=== PATIENT | female | born 1960 | race Caucasian/White ===

== ENCOUNTER 2017-05-24 11:35 | Emergency (ER) | payer SELFPAY ==
[~2017-05-24] VITALS: Ht 160 cm; Wt 59.0 kg
[~2017-05-24 11:35] MED LIST: ACET325T11 PO; IBUP800T23 PO; NAPR-576 PO; ROBA750T3 PO
[2017-05-24 11:37] VITALS: BP 144/88; PULSE 81; RESP 16; TEMP 98.2; O2SAT 98
--- NOTE | 2017-05-24 11:46 | PD ---
Physical Exam Date Seen by Provider: May 24, 2017 Time Seen by Provider: 11:44 Narrative 57-year-old female presents with low back and left hip pain for the past week. Patient states she slipped and fell approximately week ago while taking her trash out. States history of degenerative disc disease. Pain is currently 8 out of 10. It is worse with movement. She has no known drug allergies. Data Data Last Documented VS Vital Signs Date Time Temp Pulse Resp B/P (MAP) Pulse Ox O2 Delivery O2 Flow Rate FiO2 05/24/17 11:37 98.2 81 16 144/88 (106) 98 MDM Medical Record Reviewed: Yes Supervised Visit with LALO: Yes Narrative Course Vital signs are stable. Patient awaiting bed placement. Condition: Stable Brain Hollins May 24, 2017 11:46
--- NOTE | 2017-05-24 12:54 | PD ---
HPI Chief Complaint: Fall Time Seen by Provider: 12:54 Travel History International Travel<30 days: No Contact w/Intl Traveler<30days: No Traveled to known affect area: No History of Present Illness HPI 57-year-old female presents to the emergency Department with complaint of continued right hip pain and low back pain after a fall 6 days ago. She states that she had a sharp shooting pain in her right lower back which caused her to fall. She states she has had this in the past and thinks it is due to her fibromyalgia. When she fell she injured her right hip and lower back. She has been ambulatory with a limp to the right lower extremity since the fall. She denies hitting her head or loss of consciousness. Denies neck pain. Denies encopresis, incontinence, saddle anesthesia. Denies IV drug use or cancer. Denies fever, vomiting, abdominal pain, chest pain, shortness of breath. Denies change in urine or stool. Denies anticoagulant therapy. Describes the pain as sharp shooting pain. Rates the pain 02/07. Has been taking Tylenol for symptom management. Pain is aggravated with abduction of the right hip and ambulation. Has no other medical complaints. No known allergies. No other modifying factors or associated signs and symptoms. PFSH Past Medical History Arthritis: Yes Cardiovascular Problems: Yes Fibromyalgia: Yes ("polymyalgia") Musculoskeletal: Yes (L5 chronic back pain) Tetanus Vaccination: Unknown Influenza Vaccination: No ?: Not Menopausal: Yes Social History Alcohol Use: No Tobacco Use: Yes (1PPD) Substance Use: Yes Allergies-Medications (Allergen,Severity, Reaction): Coded Allergies: No Known Allergies (Verified , 05/24/17) Reported Meds & Prescriptions Reported Meds & Active Scripts Active Walker/Adult/Folding (Device) 1 Mis Mis Ea .ROUTE DIRECTED Ibuprofen 800 Mg Tab 800 Mg PO Q8H PRN Robaxin (Methocarbamol) 500 Mg Tab 500 Mg PO QID PRN Review of Systems Except as stated in HPI: all other systems reviewed are Neg Physical Exam Narrative GENERAL: Well-nourished, well-developed female patient, in no acute distress; afebrile, nontoxic-appearing SKIN: Warm and dry. HEAD: Atraumatic. Normocephalic. EYES: Pupils equal and round. No scleral icterus. No injection or drainage. ENT: Mucosa pink and moist. Airway patent. NECK: Trachea midline. CARDIOVASCULAR: Regular rate. RESPIRATORY: No accessory muscle use. GASTROINTESTINAL: Flat. MUSCULOSKELETAL: Right hip with tenderness on abduction of the right lower extremity; no leg length discrepancy. Bilateral lower extremities supple and non-tense with 2+ pedal pulses and sensory intact; with full range of motion and 5/5 strength. 2+ DTRs bilaterally. Active dorsiflexion and extension of bilateral feet. Right straight leg raise is positive for low back pain. Ambulatory in room with a limp to the right lower extremity. sitting up in bed at 90. No obvious deformities. No clubbing. No cyanosis. No edema. BACK: Midline point tenderness on palpation of the lumbar spine. Tenderness on palpation of right lumbar iliosacral area. No obvious deformities. NEUROLOGICAL: Awake and alert. Oriented 3. No obvious cranial nerve deficits. Motor grossly within normal limits. Normal speech. Moves all extremities. 5/5 strength to all extremities. Sensory intact. PSYCHIATRIC: Appropriate mood and affect; insight and judgment normal. Data Data Last Documented VS Vital Signs Date Time Temp Pulse Resp B/P (MAP) Pulse Ox O2 Delivery O2 Flow Rate FiO2 05/24/17 11:37 98.2 81 16 144/88 (106) [address] Lumb Spine W/O Contrast (05/24/17 ) Hip, Uni(Ap&Lat) W Ap Pelvis (05/24/17 12:51) Ketorolac Inj (Toradol Inj) (05/24/17 13:00) Orphenadrine Inj (Norflex Inj) (05/24/17 13:00) Ed Discharge Order (05/24/17 14:22) [facility] Medical Decision Making Medical Screen Exam Complete: Yes Emergency Medical Condition: Yes Medical Record Reviewed: Yes Differential Diagnosis Fall, lumbar fracture, lumbar contusion, low-back strain, hip strain, hip contusion, sciatica Narrative Course 57-year-old female with right hip injury and low back injury after mechanical fall 6 days ago. Denies hitting her head or loss of consciousness. Denies neck pain. Norflex and Toradol administered in the ER. Right hip with pelvic x -ray ordered. CT lumbar spine ordered. 1416: Right hip and pelvis x-ray concludes no fracture. CT lumbar spine concludes: Last 24 [address] Impressions [address]ine [address] 05/24/17 0000 Signed Impressions: Service Date/Time: Wednesday, May 24, 2017 13:25 - CONCLUSION: 1. Degenerative disc disease most prominent at the lumbosacral junction with loss of disc height and vacuum disc phenomenon. 2. Minimal anterolisthesis of L5 on S1 probably due to facet arthrosis and degeneration. 3. No fracture. Spinal canal and neural foramina appear to be adequate throughout. 4. Possible adrenal hyperplasia. Jerry Ennis MD X-ray and CT findings discussed with the patient. Patient provided a copy of the CT scan report. Ibuprofen and Robaxin prescribed for home. Instructed patient to follow up with orthopedics. Instructed patient to follow up with primary care provider. Patient verbalizes understanding and agreement with treatment plan. Patient is medically cleared and stable for discharge. Discussed reasons to return to the emergency department. Patient agrees with treatment plan. The patients vital signs are stable and the patient is stable for outpatient follow-up and treatment. Patient discharged home, stable and in no acute distress. Diagnosis Primary Impression: Fall Qualified Codes: W19.XXXA - Unspecified fall, initial encounter Additional Impressions: Injury of low back Qualified Codes: S39.92XA - Unspecified injury of lower back, initial encounter Injury of right hip Qualified Codes: S79.911A - Unspecified injury of right hip, initial encounter Referrals: [facility] Orthopedist Primary Care Physician Patient Instructions: Acute Low Back Pain (ED), Fall Prevention (ED), General Instructions, Hip Pain (ED), Low Back Strain (ED), Sciatica (ED) Departure Forms: Tests/Procedures, Work Release Enter return to work date: May 31, 2017 Additional Instructions: Tylenol or ibuprofen as directed and as needed for pain Robaxin as prescribed and as needed for muscle spasms Heating pad and/or ice to affected area to reduce pain Avoid aggravating activities; increase activity as tolerated Walker for support Follow-up with primary care provider Return to emergency department immediately with worsening of symptoms Med/Other Pt SpecificInfo: Prescription(s) given Scripts Walker/Adult/Folding (Walker/Adult/Folding) 1 Mis Mis EA .ROUTE DIRECTED, #1 0 Refills Prov: Kerrie Dennis [employer] 05/24/17 Ibuprofen (Ibuprofen) 800 Mg Tab 800 MG PO Q8H Y for PAIN SCALE 1 TO 10, #20 TAB 0 Refills Prov: Kerrie Dennis 05/24/17 Methocarbamol (Robaxin) 500 Mg Tab 500 MG PO QID Y for MUSCLE SPASM, #30 TAB 0 Refills Prov: Kerrie Dennis 05/24/17 Disposition: 01 DISCHARGE HOME Condition: Stable Kerrie Dennis May 24, 2017 12:54
[2017-05-24] MEDS ORDERED: ORPHENADRINE INJ 60 MG/2 ML AMP IM ONE (13:00)
[2017-05-24] MEDS ORDERED: KETOROLAC TROMETHAMINE 60 MG/2 ML (IM) VIAL IM ONE (13:00)
--- NOTE | 2017-05-24 14:01 | RADRPT ---
EXAM DATE/TIME: 05/24/2017 13:25 [facility] COMPARISON: No previous studies available for comparison. INDICATIONS : Fall one week ago. Lower back pain. RADIATION DOSE: 35.86 CTDIvol (mGy) MEDICAL HISTORY : None SURGICAL HISTORY : None. ENCOUNTER: Initial ACUITY: 1 week PAIN SCALE: 6/10 LOCATION: Bilateral back TECHNIQUE: Volumetric scanning of the lumbar spine was performed. Multiplanar reconstructions in the sagittal, coronal and oblique axial planes were performed. Using automated exposure control and adjustment of the mA and/or kV according to patient size, radiation dose was kept as low as reasonably achievable t o obtain optimal diagnostic quality images. DICOM format image data is available electronically for review and comparison. FINDINGS: VERTEBRAE: Normal vertebral body height. ALIGNMENT: No evidence of subluxation. MISCELLANEOUS: Degenerative disc disease at the lumbosacral junction with loss of disc height and vacuum disc phenom enon. Minimal anterolisthesis of L5 on S1 due to facet hypertrophy and arthrosis. Vacuum joint phenom enon in the SI joints bilaterally. Adrenal glands are prominent but remain adreniform suggesting hype rplasia. T12-L1: The thecal sac has a normal diameter. No evidence of disc bulge or protrusion. The neural foramina are patent bilaterally. L1-L2: The thecal sac has a normal diameter. No evidence of disc bulge or protrusion. The neural foramina are patent bilaterally. L2-L3: The thecal sac has a normal diameter. No evidence of disc bulge or protrusion. The neural foramina are patent bilaterally. L3-L4: The thecal sac has a normal diameter. No evidence of disc bulge or protrusion. The neural foramina are patent bilaterally. L4-L5: The thecal sac has a normal diameter. No evidence of disc bulge or protrusion. The neural foramina are patent bilaterally. L5-S1: The thecal sac has a normal diameter. No evidence of disc bulge or protrusion. The neural foramina are patent bilaterally. CONCLUSION: 1. Degenerative disc disease most prominent at the lumbosacral junction with loss of disc height and vacuum disc phenomenon. 2. Minimal anterolisthesis of L5 on S1 probably due to facet arthrosis and degeneration. 3. No fracture. Spinal canal and neural foramina appear to be adequate throughout. 4. Possible adrenal hyperplasia. Jerry Ennis MD on May 24, 2017 at 13:53 Board Certified Radiologist. This report was verified electronically.
--- NOTE | 2017-05-24 14:13 | RADRPT ---
EXAM DATE/TIME: 05/24/2017 14:05 [facility] COMPARISON: No previous studies available for comparison. INDICATIONS : Fell at work. MEDICAL HISTORY : None. SURGICAL HISTORY : None. ENCOUNTER: Initial ACUITY: 1 day PAIN SCORE: 8/10 LOCATION: Right hip and pelvis FINDINGS: Examination of the right hip was performed with AP Pelvis. The primary and secondary trabecular issac maryjane of the femoral neck is intact. The hip joint is of normal width without significant sclerosis or bony hypertrophy. The acetabulum is grossly intact. CONCLUSION: No fracture Jerry Ennis MD on May 24, 2017 at 14:11 Board Certified Radiologist. This report was verified electronically.
[2017-05-24] MEDS ORDERED: IBUP800T23 PO (14:21)
[2017-05-24] MEDS ORDERED: WALKER/ADULT/FO1 MIS (14:21)
[2017-05-24] MEDS ORDERED: ROBA500T PO (14:21)
== END 2017-05-24 14:33 | disposition home or self-care (01) ==
LOC: NEPK 11:35
DX: S39.92XA Unspecified injury of lower back, initial encounter (principal); S79.911A Unspecified injury of right hip, initial encounter; M79.7 Fibromyalgia; F17.200 Nicotine dependence, unspecified, uncomplicated; W18.30XA Fall on same level, unspecified, initial encounter
CPT/HCPCS: 72131; 73502; 96372; 99285; J1885; J2360

== ENCOUNTER 2017-06-01 13:37 | Emergency (ER) | payer OTHER ==
[~2017-06-01] VITALS: Ht 162.6 cm; Wt 56.5 kg
[~2017-06-01 13:37] MED LIST changes: -ACET325T11 PO; +IBUP1TAB7 PO; -IBUP800T23 PO; -NAPR-576 PO; +ROBA500T PO; -ROBA750T3 PO; +WALKER/ADULT/FO1 MIS
[2017-06-01 13:38] VITALS: BP 124/64; PULSE 99; RESP 20; TEMP 99.2; O2SAT 96
[2017-06-01] MEDS ORDERED: GABA100C4 PO (14:56)
--- NOTE | 2017-06-01 14:56 | PD ---
HPI Chief Complaint: Musculoskeletal Complaint Time Seen by Provider: 14:53 Travel History International Travel<30 days: No Contact w/Intl Traveler<30days: No Traveled to known affect area: No History of Present Illness HPI 57-year-old female presents for evaluation after fall. She was seen here recently after a fall complaining of right hip and leg pain. She had CT imaging of the lumbar spine and x-ray imaging the hip revealing no acute abnormalities. She was prescribed Robaxin and ibuprofen. She reports that her symptoms improved with the administration medication but she reports a continued spasming pain in her right leg that is worse when sleeping. She reports a history of fibromyalgia and feels that this is being exacerbated by her fibromyalgia. She denies any new injury. She denies any bowel or bladder incontinence, weakness, saddle anesthesia, abdominal pain. She has no other complaints. PFSH Past Medical History Arthritis: Yes Cardiovascular Problems: Yes Fibromyalgia: Yes ("polymyalgia") Musculoskeletal: Yes (L5 chronic back pain) Menopausal: Yes Social History Alcohol Use: No Tobacco Use: Yes (1PPD) Substance Use: Yes Allergies-Medications (Allergen,Severity, Reaction): Coded Allergies: No Known Allergies (Verified Adverse Reaction, Unknown, 06/01/17) Reported Meds & Prescriptions Reported Meds & Active Scripts Active Gabapentin 100 Mg Cap 100 Mg PO TID 10 Days Ibuprofen 800 Mg Tab 800 Mg PO Q8H PRN Robaxin (Methocarbamol) 500 Mg Tab 500 Mg PO QID PRN Review of Systems Except as stated in HPI: all other systems reviewed are Neg Physical Exam Narrative GENERAL: Well-developed well-nourished female in no acute distress SKIN: Warm and dry. HEAD: Atraumatic. Normocephalic. EYES: Pupils equal and round. No scleral icterus. No injection or drainage. ENT: No nasal bleeding or discharge. Mucous membranes pink and moist. NECK: Trachea midline. No JVD. CARDIOVASCULAR: Regular rate and rhythm. No murmur appreciated. RESPIRATORY: No accessory muscle use. Clear to auscultation. Breath sounds equal bilaterally. GASTROINTESTINAL: Abdomen soft, non-tender, nondistended. Hepatic and splenic margins not palpable. MUSCULOSKELETAL: No obvious deformities. No clubbing. No cyanosis. No edema. 5 out of 5 muscle strength in lower extremities. NEUROLOGICAL: Awake and alert. No obvious cranial nerve deficits. Motor grossly within normal limits. Normal speech. PSYCHIATRIC: Appropriate mood and affect; insight and judgment normal. Data Data Last Documented VS Vital Signs Date Time Temp Pulse Resp B/P (MAP) Pulse Ox O2 Delivery O2 Flow Rate FiO2 06/01/17 13:38 99.2 99 20 124/64 (84) 96 Room Air MDM Medical Decision Making Medical Screen Exam Complete: Yes Emergency Medical Condition: Yes Medical Record Reviewed: Yes Differential Diagnosis Fibromyalgia, muscle spasm, radiculopathy Narrative Course Physical examination recent workup are reassuring. The plan will be to have the patient continue taking ibuprofen and Robaxin. She'll be discharged with a short course of gabapentin. Diagnosis Primary Impression: Muscle spasm Additional Impression: Fibromyalgia Additional Instructions: Medication as needed. Follow-up with primary care physician. Return for any emergent medical conditions. Med/Other Pt SpecificInfo: Prescription(s) given Scripts Gabapentin (Gabapentin) 100 Mg Cap 100 MG PO TID for 10 Days, #30 CAP 0 Refills Prov: Ugo De La Vega MD 06/01/17 Disposition: 01 DISCHARGE HOME Condition: Stable Shukri Alaniz Jun 01, 2017 14:56
== END 2017-06-01 15:34 | disposition home or self-care (01) ==
LOC: NEPK 13:37
DX: M62.838 Other muscle spasm (principal); M79.7 Fibromyalgia; M19.90 Unspecified osteoarthritis, unspecified site; F17.200 Nicotine dependence, unspecified, uncomplicated; Z79.899 Other long term (current) drug therapy
CPT/HCPCS: 99283